=== PATIENT | male | born 1985 | race Caucasian/White ===

== ENCOUNTER 2020-10-07 20:01 | Emergency (ER) | payer OTHER, SELFPAY ==
[2020-10-07 20:15] VITALS: BP 109/84; PULSE 88; RESP 18; TEMP 36.8; O2SAT 98; BMI 28.3
--- NOTE | 2020-10-07 20:32 | PC.NURSE ---
PT TO ROOM #18 WITH C/O DIARRHEA WHICH STARTED TODAY. PT CHG INTO GOWN AND IS COMPLAINING THAT HE HAS NO TV. PT ARRIVER ALERT, RESPIRATIONS EASY, N/L. SKIN W/D. PT AWAITING MD'S EVAL.
--- NOTE | 2020-10-07 21:02 | ED_ITS ---
HPI - Abdominal Pain General Chief Complaint: Abdominal Pain Stated Complaint: Diarrhea Source: patient Mode of arrival: ambulatory Limitations: no limitations History of Present Illness HPI narrative: 32-year-old male with lactose intolerance presents with abdominal cramping and diarrhea after accidentally drinking whole milk. He states his symptoms are much better and the diarrhea has stopped. He denies chest pain or pressure, palpitations, shortness of breath, abdominal distention, dysuria, hematuria, fevers and chills. MD elicited complaint: abdominal pain Pertinent past history: other ( Lactose intolerance) Onset (ago): hour(s) ( several hours) Pain Consistency: now resolved Location: LUQ, RUQ, RLQ and LLQ Severity: moderate Quality: cramping and aching Migration to: no migration Relieving factors: nothing Associated symptoms: denies other symptoms Related Data Previous Rx's Medication Instructions Recorded lactase [Dairy Relief] 3,000 unit PO QID PRN #60 tab 10/07/20 Allergies Allergy/AdvReac Type Severity Reaction Status Date / Time No Known Allergies Allergy Verified 10/07/20 20:15 [No Known Allergies*] Review of Systems Review of Systems Constitutional: No Weight loss, No Fever, No Chills, No Night Sweats, No Fatigue, No Malaise ENT/Mouth: No Hearing loss, No Ear Pain, No Nasal Congestion, No Sinus Pain, No Hoarseness, No sore throat, No Rhinorrhea, No Swallowing Difficulty Eyes: No Eye Pain, No Swelling, No Redness, No Foreign Body, No Discharge, No Vision Changes Cardiovascular: No Chest Pain, No SOB, No Dyspnea on Exertion, No Orthopnea, No Edema, No Palpitations Respiratory: No Cough, No Sputum, No Wheezing, No Smoke Exposure, No Dyspnea Gastrointestinal: no Nausea, noVomiting, positive Diarrhea, positive abdominal Pain, No Hematochezia, No Melena Genitourinary: no irregular bleeding, No Dysuria, No Urinary Frequency, No Hematuria, No Urinary Incontinence, No Urgency, No Flank Pain, No Urinary Flow Changes, No Hesitancy Musculoskeletal: No joint pain, No Myalgias, No Joint Swelling Skin: No Skin Lesions, No rash Neuro: No Weakness, No Numbness, No Paresthesias, No Loss of Consciousness, No Dizziness, No Headache Psych: No Anxiety/Panic, No Depression, No SI/HI/AH/VH, No Social Issues Heme/Lymph: No Bruising, No Bleeding,No Lymphadenopathy Endocrine: No Polyuria, No Polydipsia, No Temperature Intolerance Yes all other systems are reviewed and are negative Physical Exam Vital Signs: Vital Signs: Last Vital Signs Temp 98.3 F 10/07/20 20:15 Pulse 88 10/07/20 20:15 Resp 18 10/07/20 20:15 BP 109/84 10/07/20 20:15 Pulse Ox 98 10/07/20 20:15 Body Mass Index 28.3 Appearance: Alert. Oriented X3. No acute distress. Eyes: Pupils equal, round and reactive to light. ENT: Pharynx normal. Neck: Normal inspection. Neck supple. CVS: Normal heart rate and rhythm. Pulses normal. Respiratory: No respiratory distress. Breath sounds normal. Abdomen: Soft and nontender. Skin: Skin warm and dry. Normal skin color. Normal skin turgor. Extremities: No lower extremity edema. Neuro: No motor deficit. No sensory deficit. Course Course Course Narrative: 34-year-old male with lactose intolerance presents with abdo eileen cramping and diarrhea that has now resolved after drinking whole milk. Plan of care to discharge home as he is afebrile, vital signs are Stable and within normal limits, patient no longer has pain And diarrhea has resolved. We will prescribe him some Lactaid and discharged home. patient verbalized understanding of and agrees plan of care to discharge home. MDM - Abdominal Pain Differential Diagnosis Differential diagnosis: Likely abdominal pain, gastroenteritis and gastritis Differential diagnosis narrative:: Lactose intolerance Medical Records Attestation: I reviewed the patient's medical records. Discharge Plan Discharge Clinical Impression: Dietary lactose intolerance, Abdominal cramping Patient Disposition: Home, Self-Care Instructions: Lactose-Controlled Diet (ED) Additional Instructions: you were evaluated for abdominal pain and cramping with some diarrhea. This is suspected to be lactose intolerance. Please use Lactaid as needed. Your symptoms are not consistent with COVID-19. You may return to work tomorrow. Thank you for choosing this emergency department for evaluation. Please follow-up with primary care physician as needed. Return to the emergency department for any new, concerning, or worsening symptoms. Prescriptions: New lactase [Dairy Relief] 3,000 unit tablet 3,000 unit PO QID PRN (Reason: lactose intolerance) Qty: 60 RF: 0 Stand Alone Forms: Work/School Release Interventions: ED Discharge Assessment Last Done: 10/07/20 21:13 Discharge Date/Time: 10/07/20 21:21 [facility] Past Medical History Attestation statement: The following information was validated with the patient. Medical History Healthy adult Polysubstance dependence Social History Social History Use of substances other than those prescribed or required for medical reasons: No Any prior treatment program specific to substance use: No Advance Directives: No Advance Directives Information Provided: No
--- NOTE | 2020-10-07 21:16 | PC.NURSE ---
PT REQUESTING HE WANT TO LEAVE PT STATES HE FEEL BETTER AND JUST WANTS A NOTE FOR WORK. [employer] AWARE.
== END 2020-10-07 21:21 | disposition home or self-care (01) ==
PROVIDERS: Emergency Provider Emergency Medicine
DX: E73.8 Other lactose intolerance (principal); R10.9 Unspecified abdominal pain
CPT/HCPCS: 99283; 99284

== ENCOUNTER 2021-03-06 12:04 | Emergency (ER) | payer OTHER, SELFPAY ==
--- NOTE | ~2021-03-06 | US_ITS ---
EXAMINATION: US VENOUS WITH DOPPLER UPPER EXTREMITY, RIGHT CLINICAL INFORMATION: Pain, swelling and redness. Rule out DVT. COMPARISON: None TECHNIQUE: Ultrasound of the upper extremity is performed using compression sonography and color and pulse Doppler flow with assessment of augmentation of flow. There is also imaging and Doppler assessment of the jugular and subclavian veins. Spectral analysis with color-flow imaging is performed. FINDINGS: Respiratory variation, normal compression, and augmented flow are noted throughout the upper extremity including the axillary, brachial, cubital, and radial and ulnar veins. The cephalic vein is not visualized. There is normal flow in the internal jugular and subclavian veins. There is no visible deep or superficial thrombophlebitis. There is a complex hypervascular echogenic fluid seen in the right antecubital fossa measuring 2.9 x 1.8 x 2.7 cm. There is strongly suspicious for an abscess. If the patient's symptoms progress, a followup ultrasound in 5 -7 days might be of value to exclude proximal propagation from a nonvisualized distal arm vein. US/US venous duplex UE RT IMPRESSION: No DVT demonstrated in the right upper extremity. Suspect abscess in the right antecubital fossa.
--- NOTE | ~2021-03-06 | XR_ITS ---
EXAMINATION: XR ELBOW, RIGHT CLINICAL INFORMATION: Pain, swelling. Redness. History IV. COMPARISON: Right upper extremity venous ultrasound with Doppler 03/06/2021 TECHNIQUE: AP, lateral, and oblique views of the right elbow. FINDINGS: Bony mineralization is normal. There is no fracture, dislocation, destructive process, or periostitis. No elbow capsular effusion. There is subcutaneous edema suggested in the anterior medial soft tissues. Abscess suspected on recent upper extremity ultrasound. XR/XR elbow RT min 3V IMPRESSION: 1. No bony destructive process or capsular effusion. 2. See upper extremity ultrasound report regarding suspected abscess.
[2021-03-06 12:07] VITALS: BP 121/74; PULSE 93; RESP 18; TEMP 37.8; O2SAT 99; BMI 23.5
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
[2021-03-06] MEDS: cephALEXin 500 MG CAPSULE PO (13:24)
[2021-03-06 13:54] LABS: MANUAL DIFF FLAG NO
[2021-03-06 13:56] LABS: Basophils Percent Auto 0.1 % (0-2); Eosinophils Absolute Auto 0.1 X10*3/uL (0.0-0.4); Eosinophils Percent Auto 0.6 % (0-4); Hematocrit 41.5 % (42-52); Hemoglobin 13.8 g/dl (14.0-18.0); Imm Gran Abs Auto 0.06 X10*3/uL (0.00-0.03); Imm Gran Pct Auto 0.4 % (0.0-0.4); Lymphocytes Absolute Auto 1.6 X10*3/uL (1.2-4.9); Lymphocytes Percent Auto 11.9 % (20-40); Mean Corpuscular HGB Conc 33.3 g/dl (31.0-36.0); Mean Corpuscular Hemoglobin 30.8 pg (27.0-33.0); Mean Corpuscular Volume 92.6 fL (80-98); Monocytes Absolute Auto 0.8 X10*3/uL (0.1-1.2); Monocytes Percent Auto 6.1 % (2-11); Neutrophils Absolute Auto 10.8 X10*3/uL (2.0-8.3); Neutrophils Percent Auto 80.9 % (45-73); Platelet Count 347 X10*3/uL (160-400); Red Blood Count 4.48 X10*6/uL (4.60-5.80); Red Cell Distribution Width 12.4 % (11.0-16.0); White Blood Count 13.4 X10*3/uL (4.8-10.8)
[2021-03-06 14:22] LABS: Lactic Acid 1.6 mmol/L (0.5-2.0)
[2021-03-06 14:26] LABS: Anion Gap 11 (12-20); Blood Urea Nitrogen 9 mg/dL (9-16); Calcium 9.2 mg/dL (8.4-10.2); Carbon Dioxide 29 mmol/L (22-29); Chloride 103 mmol/L (96-108); Creatinine Clr Calc Pharmacy 129.2; Estimated Glomerular Filt Rate > 60; Glucose Random 88 mg/dL (60-115); Potassium 4.9 mmol/L (3.3-5.1); Sodium 138 mmol/L (135-145)
[2021-03-06 14:32] VITALS: BP 110/63; PULSE 80; RESP 14; TEMP 37.2; O2SAT 97
== END 2021-03-06 14:52 | disposition home or self-care (01) ==
PROVIDERS: Physician Assistant; Emergency Provider Emergency Medicine
DX: L02.413 Cutaneous abscess of right upper limb (principal); L03.113 Cellulitis of right upper limb; M79.601 Pain in right arm
CPT/HCPCS: 10060; 36415; 73080; 80048; 83605; 85025; 87040; 87071; 87205; 93971; 99283; 99284

== ENCOUNTER 2021-03-09 13:25 | Emergency (ER) | payer OTHER, SELFPAY ==
[2021-03-09 13:40] VITALS: BP 131/58; PULSE 84; RESP 18; TEMP 36.6; O2SAT 98; BMI 23.5
--- NOTE | 2021-03-09 13:51 | ED_ITS ---
HPI - Skin/Abscess/Foreign Bdy General Chief complaint: Skin/Abscess/Foreign Body Stated complaint: wound check Time Seen by Provider: 03/09/21 13:46 Source: patient Mode of arrival: ambulatory Limitations: no limitations History of Present Illness HPI narrative: 35 y/o male presenting with right middle arm abscess. He was recently seen here on 03/06 for cellulitis and abscess to right AC area. At that time he had negative US doppler, WBC 13K, abscess was aspirated for 6.5 cc fluid. He was discharged on Bactrim and Keflex. He states the area started to swell up again yesterday. He thinks the abscess filled back up. He is compliant with the antibiotics and denies fevers at home. The redness of his arm is significantly improved. MD complaint: abscess/boil Onset (ago): day(s) (4) Tetanus up to date: yes Location: RUE Severity: moderate Quality: aching and constant Pain Consistency: constant Relieving factors: immobilization Exacerbating factors: palpation and movement Associated symptoms: denies other symptoms Treatments prior to arrival: attempted to drain pus at home Related Data Previous Rx's Medication Instructions Recorded lactase [Dairy Relief] 3,000 unit PO QID PRN #60 tab 10/07/20 cephalexin 500 mg PO Q8H 10 Days #30 cap 03/06/21 ibuprofen 800 mg PO Q8H PRN #20 tab 03/06/21 sulfamethoxazole-trimethoprim 1 tab PO BID #14 tab 03/06/21 [Bactrim DS] Allergies Allergy/AdvReac Type Severity Reaction Status Date / Time No Known Allergies Allergy Verified 03/06/21 12:06 [No Known Allergies*] Review of Systems Review of Systems: Constitutional: No Fever, No Chills Cardiovascular: No Chest Pain, No SOB Respiratory: No Cough, No Sputum Gastrointestinal: No Nausea, No Vomiting, No Diarrhea, No abdominal Pain Musculoskeletal: No joint pain, No Myalgias Skin: + Skin Lesions, No rash Neuro: No Weakness, No Numbness Heme/Lymph: No Bruising, No Lymphadenopathy PMFSH Past Medical History Attestation statement: The following information was validated with the patient. Medical History Healthy adult Polysubstance dependence Social History Social History Advance Directives: No Advance Directives Information Provided: Yes Physical Exam Vital Signs: Vital Signs: Last Vital Signs Temp 97.9 F 03/09/21 13:40 Pulse 84 03/09/21 13:40 Resp 18 03/09/21 13:40 BP 131/58 L 03/09/21 13:40 Pulse Ox 98 03/09/21 13:40 Body Mass Index 23.5 Appearance: Alert. Oriented X3. No acute distress. HEENT: normal inspection CVS: Normal heart rate and rhythm. Pulses normal. Respiratory: No respiratory distress. Skin: Skin warm and dry. Normal skin color. Normal skin turgor. No rashes. Extremities: right AC with 3 cm erythematous and tender lesion with central fluctuance, small needle hole centrally with pus draining. minimal surrounding erythema. he has normal ROM of right elbow. Neuro: Oriented X 3. No motor deficit. No sensory deficit. Course Course Course Narrative: 35 y/o male presenting with right AC abscess 3 days after needle aspiration of abscess. Amenable to drainage with fluctuance. See I&D no te. Wound care discussed. Patient is stable for d/c. Procedures Abscess I/D Site: upper extremity Side (if applicable): right Local Anesthetic: lidocaine 2% Amount of anesthesia used (mL): 2 Technique: incised with blade Sent for culture/gram staining?: No Irrigation: Yes Packing used?: iodoform Discharge Plan Discharge Clinical Impression: Abscess Patient Disposition: Home, Self-Care Instructions: Abscess Incision and Drainage (DC) Additional Instructions: Your abscess was drained today in the ER. Take the packing out in 2 days. Your wound will heal from the inside out. You may have more drainage at home. Use warm compresses several times per day to the area to help fight the infection. Continue taking the antibiotics. If the abscess gets large again or if you have increased redness, warmth or are unable to bend your elbow come back to the ER for further evaluation. Prescriptions: No Action lactase [Dairy Relief] 3,000 unit tablet 3,000 unit PO QID PRN (Reason: lactose intolerance) Qty: 60 RF: 0 sulfamethoxazole-trimethoprim [Bactrim DS] 800-160 mg tablet 1 tab PO BID Qty: 14 RF: 0 cephalexin 500 mg capsule 500 mg PO Q8H 10 Days Qty: 30 RF: 0 ibuprofen 800 mg tablet 800 mg PO Q8H PRN (Reason: pain) Qty: 20 RF: 0
[2021-03-09] MEDS: Lidocaine HCl 2 % MPF 5 ML VIAL INFILTRATI (13:57)
== END 2021-03-09 14:20 | disposition home or self-care (01) ==
PROVIDERS: Emergency Provider Emergency Medicine
DX: L02.413 Cutaneous abscess of right upper limb (principal); F19.20 Other psychoactive substance dependence, uncomplicated
CPT/HCPCS: 10060; 99283; 99284

== ENCOUNTER 2022-02-14 02:23 | Emergency (ER) | payer MEDICAID, SELFPAY ==
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
--- NOTE | ~2022-02-14 | XR_ITS ---
EXAMINATION: XR CHEST CLINICAL INFORMATION: Pneumothorax status post chest tube placement COMPARISON: CT chest performed earlier same day TECHNIQUE: Frontal view of the chest was obtained. XR/XR chest 1V FINDINGS/IMPRESSION: Pigtail catheter has been placed in the left pleural space. Small residual left pneumothorax. Right lung clear. Normal heart size and pulmonary vascularity. No fractures.
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
[2022-02-14 02:29] VITALS: BP 130/78; PULSE 100; O2SAT 97
[2022-02-14 03:03] VITALS: BMI 24.1
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
--- NOTE | 2022-02-14 03:28 | PC.NURSE ---
pt walking around with his c-collar intact, pt redirected back to bed, told that he shouldn't be walking with the collar on, that it is less effective if he does have a neck injury. pt given a urinal to void
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
[2022-02-14 04:02] LABS: MANUAL DIFF FLAG NO
[2022-02-14 04:03] LABS: Basophils Percent Auto 0.1 % (0-2); Eosinophils Absolute Auto 0.1 X10*3/uL (0.0-0.4); Eosinophils Percent Auto 0.7 % (0-4); Hematocrit 41.1 % (42.0-52.0); Hemoglobin 14.2 g/dl (14.0-18.0); Imm Gran Abs Auto 0.05 X10*3/uL (0.00-0.03); Imm Gran Pct Auto 0.3 % (0.0-0.4); Lymphocytes Absolute Auto 1.2 X10*3/uL (1.2-4.9); Mean Corpuscular HGB Conc 34.5 g/dl (31.0-36.0); Mean Corpuscular Hemoglobin 30.5 pg (27.0-33.0); Mean Corpuscular Volume 88.2 fL (80.0-98.0); Mean Platelet Volume 8.6 fL (9.4-12.4); Monocytes Absolute Auto 0.9 X10*3/uL (0.1-1.2); Monocytes Percent Auto 6.1 % (2-11); Neutrophils Absolute Auto 12.6 x10*3/uL (2.0-8.3); Neutrophils Percent Auto 84.8 % (45-73); Platelet Count 353 X10*3/uL (160-400); Red Blood Count 4.66 X10*6/uL (4.60-5.80); Red Cell Distribution Width 12.3 % (11.0-16.0); White Blood Count 14.9 X10*3/uL (4.8-10.8)
[2022-02-14 04:23] LABS: Alanine Aminotransferase 19 U/L (0-40); Albumin Level 4.6 g/dL (3.5-5.0); Alkaline Phosphatase 60 U/L (39-117); Anion Gap 15 (12-20); Aspartate Amino Transferase 30 U/L (5-37); Bilirubin Total 0.8 mg/dL (0.0-1.0); Blood Urea Nitrogen 12 mg/dL (9-16); Calcium 9.5 mg/dL (8.4-10.2); Carbon Dioxide 27 mmol/L (22-29); Chloride 104 mmol/L (96-108); Creatinine Clr Calc Pharmacy 98.4; Estimated Glomerular Filt Rate > 60; Glucose Random 97 mg/dL (60-115); Potassium 3.8 mmol/L (3.3-5.1); Sodium 142 mmol/L (135-145); Total Protein 7.4 g/dL (6.5-8.0)
--- NOTE | 2022-02-14 04:44 | PC.NURSE ---
pt resting in bed, attached to director of cardiac rehabilitation
[2022-02-14 04:45] VITALS: BP 124/77; PULSE 89; RESP 18; O2SAT 98
[2022-02-14] MEDS: Ketorolac Tromethamine 30 MG/ML VIAL 15 MG IVPUSH (05:04)
[2022-02-14] MEDS: Acetaminophen 325 MG TABLET 975 MG PO (05:09)
[2022-02-14 06:22] VITALS: BP 115/80; PULSE 67; RESP 16; O2SAT 98
--- NOTE | 2022-02-14 07:37 | PC.NURSE ---
@[phone] DR COWART ASKS FOR CALL OUT TO [facility] PT TX LINE FOR THIS PT JUDIE ANSWERS, TAKES PT INFO AND ASKS TO SPEAK WITH DR SOFYA COWART TAKES OVER CALL RIGHT AWAY
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
[2022-02-14 08:09] LABS: COVID-19 Test Negative (Negative); IDNOW Serial# 16C4AD1C
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
--- NOTE | 2022-02-14 10:35 | PC.NURSE ---
[facility] PT TX LINE CALLED @ THIS TIME TO FIND OUT IF WE HAVE ROOM ASSIGNMENT YET JUDIE ANSWERS AND CONFIRMS WE ARE STILL WAITING FOR ROOM ASSIGNMENT
[2022-02-14] MEDS: Ketorolac Tromethamine 30 MG/ML VIAL IVPUSH (10:40)
[2022-02-14 10:49] VITALS: BP 107/77; PULSE 63; RESP 13; O2SAT 97
--- NOTE | 2022-02-14 11:25 | PC.NURSE ---
Pt remains restless, VSS. LS clear and equal throughout all lung pierce. Needs frequent redirection and education. Minimal blood noted in tubing
--- NOTE | 2022-02-14 11:29 | PC.NURSE ---
CALL FROM YEIMI OF [facility] BED MANAGEMENT WITH ROOM ASSIGNMENT FOR THIS PT @ THIS TIME [facility] [address], ROOM 3 RN TO RN SHOULD BE CALLED TO [phone]
--- NOTE | 2022-02-14 11:43 | PC.NURSE ---
Nurse to nurse transfer report given to MARIBEL Mobley at [facility] on Wing [address].
[2022-02-14 13:50] VITALS: BP 110/73; PULSE 63; RESP 16; TEMP 36.7
[2022-02-14] MEDS: Buprenorphine/Naloxone 8/2 mg FILM 1 FILM SUBLINGUAL (13:50)
[2022-02-14 13:52] VITALS: BP 116/73; PULSE 63; RESP 16; O2SAT 97
--- NOTE | 2022-02-14 15:20 | PC.NURSE ---
Pt asleep, breathing easy. Awaits tx to BS
== END 2022-02-14 15:39 | disposition short-term general hospital (02) ==
PROVIDERS: Emergency Provider Student in an Organized Health Care Education/Training Program
DX: S27.321A Contusion of lung, unilateral, initial encounter (principal); S27.0XXA Traumatic pneumothorax, initial encounter; V13.4XXA Pedal cycle driver injured in collision with car, pick-up truck or van in traffic accident, initial encounter; Y93.89 Activity, other specified; Y92.414 Local residential or business street as the place of occurrence of the external cause; Y99.9 Unspecified external cause status
CPT/HCPCS: 32556; 36415; 70450; 71045; 71260; 72125; 74177; 80053; 85025; 87635; 90471; 96374; 96376; 99285; J1885

== ENCOUNTER 2022-03-04 16:47 | Emergency (ER) | payer MEDICAID, SELFPAY ==
--- NOTE | ~2022-03-04 | XR_ITS ---
EXAMINATION: CHEST 2 VIEWS CLINICAL INFORMATION: CHEST PAIN, RECENT PNEUMOTHORAX . COMPARISON: 02/14/2022. TECHNIQUE: PA and lateral views of the chest obtained. FINDINGS: Left chest tube is been removed in interval from the prior study. There is minimal linear scarring or atelectasis in the lateral aspect of the left base. I do not appreciate any significant residual pneumothorax. No dense Foundation or edema. Cardiac and mediastinal silhouettes within normal limits for size. XR/XR chest 2V IMPRESSION: Left chest tube removed. Linear scarring or atelectasis in the left base but no significant residual pneumothorax
[2022-03-04 18:24] VITALS: BP 148/86; PULSE 93; RESP 16; TEMP 36.6; O2SAT 99; BMI 21.9
== END 2022-03-04 20:36 | disposition left against medical advice (07) ==
PROVIDERS: Emergency Provider Emergency Medicine
DX: R06.02 Shortness of breath (principal); J93.9 Pneumothorax, unspecified
CPT/HCPCS: 71046; 99281; 99283

== ENCOUNTER 2022-11-17 15:07 | Emergency (ER) | payer MEDICAID, SELFPAY ==
--- NOTE | ~2022-11-17 | CT_ITS ---
EXAMINATION: CT ABDOMEN AND PELVIS WITHOUT CONTRAST CLINICAL INFORMATION: abdominal pain. blood in stool. colitis? COMPARISON: 02/14/2022 TECHNIQUE: Multidetector volumetric imaging was performed from the lung bases through the pubic symphysis. Sagittal and coronal reformatted images were obtained on the technologist workstation. This CT examination was performed using dose optimization techniques as appropriate, variously including the following: *Automated exposure control *Adjustment of mA and/or kV according to patient size (this includes techniques or standardized protocols for targeted exams where dose is matched to indication/reason for exam; i.e. extremities or head) *Use of iterative reconstruction technique FINDINGS: The lack of intravenous contrast limits evaluation of the solid visceral organs including the liver, spleen, pancreas, and kidneys. LUNG BASES: The visualized lung bases are unremarkable. LIVER, GALLBLADDER, AND BILIARY TREE: Limited non-contrast evaluation is normal. No gross focal hepatic lesion. Normal liver size and contour. No gross biliary ductal dilation. The gallbladder is unremarkable with no evidence of radiopaque gallstones, gallbladder wall thickening, or obvious pericholecystic inflammatory changes. PANCREAS: Limited non-contrast evaluation is normal. No horace-pancreatic fluid. SPLEEN: Limited non-contrast evaluation is normal. ADRENAL GLANDS: Normal; no adrenal mass. KIDNEYS AND URETERS: Limited non-contrast evaluation is normal. No hydronephrosis, hydroureter, or calculi seen. No perinephric stranding. GASTROINTESTINAL TRACT: The stomach and small bowel are nondilated. The appendix is normal. Scattered colonic diverticulosis. There is wall thickening and edema of the left colon consistent with colitis. Subtle pericolonic fat stranding. ABDOMINAL WALL: Fat within the inguinal canals bilaterally. LYMPH NODES: No pathologically enlarged lymph nodes in the abdomen or pelvis. VASCULAR: Normal caliber abdominal aorta. BLADDER: Unremarkable. PELVIC VISCERA: Normal noncontrast appearance of the prostate and seminal vesicles. OSSEOUS STRUCTURES: No acute or suspicious osseous abnormalities. CT/CT abdomen pelvis wo IV con IMPRESSION: Abnormal appearance of the left colon consistent with a nonspecific colitis, possibly infectious or inflammatory, unlikely ischemic.
[2022-11-17 15:21] VITALS: BP 126/63; PULSE 69; RESP 18; TEMP 36.7; O2SAT 98; BMI 23.3
--- NOTE | 2022-11-17 15:25 | ED_ITS ---
HPI - General Adult General Chief complaint: Abdominal Pain <ABDIAS Marrero Last Filed: 11/17/22 20:05> Stated complaint: blood in stool/ constipated <ABDIAS Marrero Last Filed: 11/17/22 20:05> Time Seen by Provider: 11/17/22 16:49 <ABDIAS Marrero Last Filed: 11/17/22 20:05> History of Present Illness HPI narrative: Patient complains of several episodes of diarrhea earlier this morning as well as some blood in the stool with the last 2 episodes of diarrhea which happened this morning, there is been no diarrhea since this morning no abdominal pain no nausea vomiting no black tarry stool The diarrhea was brown watery stool with flecks of blood in the toilet, he has no dizziness no fainting no feeling faint no confusion, no recent fever or illness Last night he did push hard to pass hard stool and thinks that may have caused the small amount of bleeding the following morning <ABDIAS Lew Last Filed: 11/17/22 19:13> Related Data Home medications: Home Medications Medication Instructions Recorded Confirmed buprenorphine 8 mg-naloxone 2 mg 1 strip sublingual BID 02/14/22 02/14/22 sublingual film (Suboxone) <ABDIAS Marrero Last Filed: 11/17/22 20:05> Allergies/adverse reactions: Allergies Allergy/AdvReac Type Severity Reaction Status Date / Time No Known Allergies Allergy Verified 11/17/22 15:21 [No Known Allergies*] <ABDIAS Marrero Last Filed: 11/17/22 20:05> Review of Systems Review of Systems: He denies fever chills no dizziness no weakness no fainting no feeling faint no bleeding from any other sites no skin rash no abdominal pain no nausea or vomiting no dysuria no black tarry stool no skin rashes no bruising <ABDIAS Lew Last Filed: 11/17/22 19:13> Yes all other systems are reviewed and are negative <ABDIAS Lew Last Filed: 11/17/22 19:13> PMFSH Past Medical History PMFSH Narrative: He has no history of frequent diarrhea, no history of blood in the stool <ABDIAS Lew Last Filed: 11/17/22 19:13> Source: nursing notes reviewed <ABDIAS Lew - Last Filed: 11/17/22 19:13> Medical History: Medical History Healthy adult Polysubstance dependence <ABDIAS Marrero - Last Filed: 11/17/22 20:05> Social History Social History: Social History Advance Directives: No Advance Directives Information Provided: Yes <ABDIAS Marrero - Last Filed: 11/17/22 20:05> Physical Exam ED Vital Signs: Vital Signs - 24 hr 11/17/22 15:21 Temperature 98.1 F Pulse Rate 69 Respiratory Rate 18 Blood Pressure 126/63 Pulse Oximetry 98 Oxygen Delivery Method Room Air BMI result Body Mass Index 23.3 <ABDIAS Marrero Last Filed: 11/17/22 20:05> Vital Signs - 24 hr 11/17/22 15:21 Temperature 98.1 F Pulse Rate 69 Respiratory Rate 18 Blood Pressure 126/63 Pulse Oximetry 98 Oxygen Delivery Method Room Air BMI result Body Mass Index 23.3 <ABDIAS Lew - Last Filed: 11/17/22 19:13> Patient is in no acute distress, comfortable cooperative Eyes anicteric with no pallor Pharynx mucous membranes are moist Neck is supple Respiratory no distress Abdomen is soft and nontender no rebound no guarding Rectal exam no masses felt, no obvious hemorrhoids, stool on glove was brownish in color, it was faintly guaiac-positive Extremities full range of motion x4 Skin no rashes no petechiae no purpura <ABDIAS Lew - Last Filed: 11/17/22 19:13> Course Course Course Narrative: RME: Patient presents to the ED for one episode of blood in stool this morning and is having lower abdominal pain. labs and Dry CT scan of abdomen ordered to check for colitis <ABDIAS Marrero Last Filed: 11/17/22 20:05> RME: Patient presents to the ED for one episode of blood in stool this morning and is having lower abdominal pain. labs and Dry CT scan of abdomen ordered to check for colitis Chemistries including LFTs were normal CBC showed normal hemoglobin and hematocrit with normal platelets of 329, INR was normal CT results showed an abnormal appearance of the left colon consistent with a nonspecific colitis possibly infectious or inflammatory Patient had 2 episodes of diarrhea this morning has had none since His complaint of a small amount of blood mixed with brownish watery stool after 2 episodes of diarrhea does not merit antibiotics at this time Case was discussed with attending physician Eulalio or agrees that patient will be discharged and if he remains asymptomatic with no more episodes of bleeding no further treatment is needed now He is advised to return to the ER if he develops any worsening diarrhea, if he has worsening rectal bleeding There was no mass palpated on rectal exam, and with normal hemoglobin hematocrit he is not anemic and likely has a nonbacterial diarrhea which irritated the rectum and caused a small amount of bleeding in toilet mixed with brown stool <ABDIAS Lew - Last Filed: 11/17/22 19:13> Medical Decision Making Lab Data MDM Lab Attestation statement: I reviewed the patient's lab results. <ABDIAS Lew - Last Filed: 11/17/22 19:13> Result Diagrams: 11/17/22 15:44 11/17/22 15:44 <ABDIAS Marrero - Last Filed: 11/17/22 20:05> Labs: Lab Results 11/17/22 11/17/22 11/17/22 Range/Units 15:44 15:44 15:44 WBC 10.4 (4.8-10.8) X10*3/uL RBC 5.34 (4.60-5.80) X10*6/uL Hgb 15.9 (14.0-18.0) g/dl Hct 46.8 (42.0-52.0) % MCV 87.6 (80.0-98.0) fL MCH 29.8 (27.0-33.0) pg MCHC 34.0 (31.0-36.0) g/dl RDW 12.7 (11.0-16.0) % Plt Count 329 (160-400) X10*3/uL MPV 8.6 L (9.4-12.4) fL Immature Gran % (Auto) 0.2 (0.0-0.4) % Neut % (Auto) 71.5 (45-73) % Lymph % (Auto) 19.7 L (20-40) % [place] % (Auto) 4.8 (2-11) % Eos % (Auto) 3.5 (0-4) % Baso % (Auto) 0.3 (0-2) % Lymph # (Auto) 2.0 (1.2-4.9) X10*3/uL [place] # (Auto) 0.5 (0.1-1.2) X10*3/uL Eos # (Auto) 0.4 (0.0-0.4) X10*3/uL Baso # (Auto) 0.0 (0.0-0.2) X10*3/uL Abs Immat Gran (auto) 0.02 (0.00-0.03) X10*3/uL Absolute Neuts (auto) 7.4 (2.0-8.3) x10*3/uL Absolute Nucleated RBC 0.000 (0.0-0.012) X10*3/uL Nucleated RBC % (auto) 0.0 (0.0-0.2) /100WBC PT 12.0 (10.0-13.1) SEC INR 1.0 (0.9-1.1) APTT 31.7 (26.0-36.4) SEC Sodium 141 (135-145) mmol/L Potassium 4.2 (3.3-5.1) mmol/L Chloride 105 (96-108) mmol/L Carbon Dioxide 24 (22-29) mmol/L Anion Gap 16 (12-20) BUN 15 (9-16) mg/dL Creatinine 0.93 (0.5-1.4) mg/dL Estim Creat Clear Calc 96.4 Estimated GFR > 60 Random Glucose 95 (60-115) mg/dL Calcium 9.7 (8.4-10.2) mg/dL Total Bilirubin 0.6 (0.0-1.0) mg/dL AST 19 (5-37) U/L ALT 17 (0-40) U/L Alkaline Phosphatase 77 (39-117) U/L Total Protein 7.6 (6.5-8.0) g/dL Albumin 4.8 (3.5-5.0) g/dL <ABDIAS Marrero - Last Filed: 11/17/22 20:05> Lab Results 11/17/22 11/17/22 11/17/22 Range/Units 15:44 15:44 15:44 WBC 10.4 (4.8-10.8) X10*3/uL RBC 5.34 (4.60-5.80) X10*6/uL Hgb 15.9 (14.0-18.0) g/dl Hct 46.8 (42.0-52.0) % MCV 87.6 (80.0-98.0) fL MCH 29.8 (27.0-33.0) pg MCHC 34.0 (31.0-36.0) g/dl RDW 12.7 (11.0-16.0) % Plt Count 329 (160-400) X10*3/uL MPV 8.6 L (9.4-12.4) fL Immature Gran % (Auto) 0.2 (0.0-0.4) % Neut % (Auto) 71.5 (45-73) % Lymph % (Auto) 19.7 L (20-40) % [place] % (Auto) 4.8 (2-11) % Eos % (Auto) 3.5 (0-4) % Baso % (Auto) 0.3 (0-2) % Lymph # (Auto) 2.0 (1.2-4.9) X10*3/uL [place] # (Auto) 0.5 (0.1-1.2) X10*3/uL Eos # (Auto) 0.4 (0.0-0.4) X10*3/uL Baso # (Auto) 0.0 (0.0-0.2) X10*3/uL Abs Immat Gran (auto) 0.02 (0.00-0.03) X10*3/uL Absolute Neuts (auto) 7.4 (2.0-8.3) x10*3/uL Absolute Nucleated RBC 0.000 (0.0-0.012) X10*3/uL Nucleated RBC % (auto) 0.0 (0.0-0.2) /100WBC PT 12.0 (10.0-13.1) SEC INR 1.0 (0.9-1.1) APTT 31.7 (26.0-36.4) SEC Sodium 141 (135-145) mmol/L Potassium 4.2 (3.3-5.1) mmol/L Chloride 105 (96-108) mmol/L Carbon Dioxide 24 (22-29) mmol/L Anion Gap 16 (12-20) BUN 15 (9-16) mg/dL Creatinine 0.93 (0.5-1.4) mg/dL Estim Creat Clear Calc 96.4 Estimated GFR > 60 Random Glucose 95 (60-115) mg/dL Calcium 9.7 (8.4-10.2) mg/dL Total Bilirubin 0.6 (0.0-1.0) mg/dL AST 19 (5-37) U/L ALT 17 (0-40) U/L Alkaline Phosphatase 77 (39-117) U/L Total Protein 7.6 (6.5-8.0) g/dL Albumin 4.8 (3.5-5.0) g/dL <ABDIAS Lew - Last Filed: 11/17/22 19:13> Discharge Plan Discharge Clinical Impression: Diarrhea, Painless rectal bleeding <ABDIAS Marrero - Last Filed: 11/17/22 20:05> Patient Disposition: Home, Self-Care <ABDIAS Marrero Last Filed: 11/17/22 20:05> Additional Instructions: The small amount of blood you saw this morning mixed with watery brown diarrhea is likely irritation to the area On rectal exam I did not feel any mass As there has been no diarrhea since this morning it may have resolved The plan is if all goes back to normal no treatment needed, if diarrhea continues you can try over the counter Imodium for diarrhea If it worsens worsens , or does not get better within 2-3 days, you will have to return to the ER for re-evaluation, if bleeding does not resolve, or if you develop black tarry stool or if you have frequent episodes of red blood or if you develop abdominal pain vomiting or fever or if you feel dehydrated return to the ER any time for re-evaluation Return any time for any worse condition or any concerns Follow routinely with primary doctor <ABDIAS Marrero - Last Filed: 11/17/22 20:05> Prescriptions: No Action buprenorphine-naloxone [Suboxone] 8-2 mg film 1 strip sublingual BID <ABDIAS Marrero - Last Filed: 11/17/22 20:05> Interventions: ED Discharge Assessment Last Done: 11/17/22 19:12 <ABDIAS Marrero - Last Filed: 11/17/22 20:05> Discharge Date/Time: 11/17/22 19:12 <ABDIAS Marrero - Last Filed: 11/17/22 20:05>
[2022-11-17 15:48] LABS: MANUAL DIFF FLAG NO
[2022-11-17 15:49] LABS: Basophils Percent Auto 0.3 % (0-2); Eosinophils Absolute Auto 0.4 X10*3/uL (0.0-0.4); Eosinophils Percent Auto 3.5 % (0-4); Hematocrit 46.8 % (42.0-52.0); Hemoglobin 15.9 g/dl (14.0-18.0); Imm Gran Abs Auto 0.02 X10*3/uL (0.00-0.03); Imm Gran Pct Auto 0.2 % (0.0-0.4); Lymphocytes Percent Auto 19.7 % (20-40); Mean Corpuscular Hemoglobin 29.8 pg (27.0-33.0); Mean Corpuscular Volume 87.6 fL (80.0-98.0); Mean Platelet Volume 8.6 fL (9.4-12.4); Monocytes Absolute Auto 0.5 X10*3/uL (0.1-1.2); Monocytes Percent Auto 4.8 % (2-11); Neutrophils Absolute Auto 7.4 x10*3/uL (2.0-8.3); Neutrophils Percent Auto 71.5 % (45-73); Platelet Count 329 X10*3/uL (160-400); Red Blood Count 5.34 X10*6/uL (4.60-5.80); Red Cell Distribution Width 12.7 % (11.0-16.0); White Blood Count 10.4 X10*3/uL (4.8-10.8)
[2022-11-17 15:57] LABS: Partial Thromboplastin Time 31.7 SEC (26.0-36.4)
[2022-11-17 16:17] LABS: Alanine Aminotransferase 17 U/L (0-40); Albumin Level 4.8 g/dL (3.5-5.0); Alkaline Phosphatase 77 U/L (39-117); Anion Gap 16 (12-20); Aspartate Amino Transferase 19 U/L (5-37); Bilirubin Total 0.6 mg/dL (0.0-1.0); Blood Urea Nitrogen 15 mg/dL (9-16); Calcium 9.7 mg/dL (8.4-10.2); Carbon Dioxide 24 mmol/L (22-29); Chloride 105 mmol/L (96-108); Creatinine Clr Calc Pharmacy 96.4; Estimated Glomerular Filt Rate > 60; Glucose Random 95 mg/dL (60-115); Potassium 4.2 mmol/L (3.3-5.1); Sodium 141 mmol/L (135-145); Total Protein 7.6 g/dL (6.5-8.0)
== END 2022-11-17 19:12 | disposition home or self-care (01) ==
PROVIDERS: Physician Assistant; Emergency Provider Internal Medicine
DX: K92.1 Melena (principal); R19.7 Diarrhea, unspecified; Z79.899 Other long term (current) drug therapy
CPT/HCPCS: 36415; 74176; 80053; 85025; 85610; 85730; 99282; 99283

== ENCOUNTER 2024-04-14 11:49 | Outpatient (REF) | payer MEDICAID, SELFPAY ==
[2024-04-14 13:49] LABS: Alanine Aminotransferase 26 U/L (0-40); Albumin Level 4.5 g/dL (3.5-5.0); Alkaline Phosphatase 60 U/L (39-117); Aspartate Amino Transferase 30 U/L (5-37); Bilirubin Direct < 0.2 mg/dL (0.0-0.5); Bilirubin Total 0.2 mg/dL (0.0-1.0)
[2024-04-14 14:14] LABS: Syphilis Screen Nonreactive (Nonreactive)
[2024-04-15 08:06] LABS: HBc Num1 0.11 S/CO (0.00-0.79); HIV AB/AG Nonreactive (Nonreactive); HIV Num 1 0.07 S/CO (0.00-0.99); Hepatitis B Core Antibody Nonreactive (Nonreactive); Hepatitis B Surface Antigen Negative (Negative); ~HepC Num1 0.15 S/CO (0.00-0.79); ~Hepatitis B Surface Antibody REACTIVE (Nonreactive); ~Hepatitis C Antibody Nonreactive (Nonreactive)
[2024-04-15 08:07] LABS: Hepatitis A Antibody IgG REACTIVE (Nonreactive); ~Hepatitis A Antibody IgG 4.67 S/CO (0.00-0.99)
[2024-04-17 10:13] LABS: TS Negative Control Passed; TS Panel A 0; TS Panel B 0; TS Positive Control Passed; TSpotTB Negative (Negative)
== END 2024-04-14 11:50 | disposition home or self-care (01) ==
LOC: HO.HHCL 11:49
PROVIDERS: Visit Provider Family Medicine
DX: F11.20 Opioid dependence, uncomplicated (principal)
CPT/HCPCS: 36415; 80076; 86481; 86704; 86706; 86708; 86780; 86803; 87340; 87389

== ENCOUNTER 2024-11-23 15:21 | Emergency (ER) | payer OTHER, MEDICAID, SELFPAY ==
--- NOTE | ~2024-11-23 | XR_ITS ---
EXAMINATION: XR CHEST CLINICAL INFORMATION: chest pain, fall on ice today. COMPARISON: 03/04/2022. TECHNIQUE: 2 views of the chest were obtained. FINDINGS: The cardiac, hilar, and mediastinal contours are normal. The lungs are clear bilaterally. There is no pneumothorax or pleural effusion. There is no focal osseous or soft tissue abnormality. XR/XR chest 2V IMPRESSION: Normal chest. Electronically signed by: Seth Lara MD 11/23/2024 04:48 PM [facility]
--- NOTE | ~2024-11-23 | XR_ITS ---
EXAMINATION: XR LUMBOSACRAL SPINE CLINICAL INFORMATION: pain s/p fall COMPARISON: None. Correlation made with CT abdomen and pelvis 11/17/2022. TECHNIQUE: Three views of the lumbosacral spine. FINDINGS: Normal bone mineralization. No fracture, subluxation, compression deformity, or suspicious bone lesion. Normal lordosis without significant scoliosis. Mild disc space narrowing L5-S1. Facets are normally aligned. Normal facet appearance. The sacrum and SI joints appear intact and normal. No soft tissue abnormalities. XR/XR lumbar spine 2-3V IMPRESSION: No acute findings of the lumbar spine. Electronically signed by: Seth Lara MD 11/23/2024 04:50 PM [facility]
--- NOTE | ~2024-11-23 | XR_ITS ---
EXAMINATION: XR THORACIC SPINE CLINICAL INFORMATION: pain s/p fall COMPARISON: None. Correlation made with CT of the chest 02/14/2022. TECHNIQUE: 3 views of the thoracic spine were obtained. FINDINGS: There is normal kyphosis without significant scoliosis. No subluxations. No fracture, compression deformity, or suspicious bone lesion. Disc spaces appear normal. Facets are normally aligned. Imaged soft tissues and lungs appear normal. XR/XR thoracic spine 3V IMPRESSION: No acute findings thoracic spine. Electronically signed by: Seth Lara MD 11/23/2024 04:52 PM [facility]
--- NOTE | 2024-11-23 15:59 | ED_ITS ---
HPI - Fall General Chief Complaint: Fall Stated Complaint: Fall - back pain, discomfort in chest Time Seen by Provider: 11/23/24 19:28 Source: patient Mode of arrival: ambulatory Limitations: no limitations History of Present Illness ED Provider: Yara Tobias PA-C HPI Narrative: 39 yo male with history of substance use disorder on Suboxone presents to the ER for evaluation of back pain after he fell x3 today at work while slipping on ice. no head strike or LOC. not on anticoagulation. he reports his middle back and lower back spine are in pain. worse with movement. no abdominal pain. no urinary symptoms. reports chest pain since the fall as well - central and nonradiating. active smoker. he thinks the pain is due to his coughing, described as a little bit. no coughing. complaint: fall Onset (ago): hour(s) Fall from: standing Fall witnessed: no Place fall occurred: work Loss of consciousness: none Prolonged down time: no Symptoms prior to fall: none Context: tripped/slipped Location of injury: back Severity: moderate Severity scale (1-10): 6 Quality: aching Associated symptoms (after fall): chest pain Related Data Home Medications ?Medication ?Instructions ?Recorded ?Confirmed buprenorphine 8 mg-naloxone 2 mg 1 strip sublingual BID 02/14/22 02/14/22 sublingual film (Suboxone) Previous Rx's ?Medication ?Instructions ?Recorded cyclobenzaprine 10 mg tablet 10 mg PO TID PRN muscle spasm #10 11/23/24 tabs lidocaine 5 % topical patch 1 patch topical DAILY #15 ea 11/23/24 naproxen 500 mg tablet 500 mg PO BID PRN pain #20 tabs 11/23/24 Allergies Allergy/AdvReac Type Severity Reaction Status Date / Time No Known Allergies Allergy Verified 11/23/24 16:02 [No Known Allergies*] Review of Systems Review of Systems: Yes all other systems are reviewed and are negative PMFSH Past Medical History Medical History Healthy adult Polysubstance dependence Social History Social History Advance Directives: No Advance Directives Information Provided: No Physical Exam Vital Signs: Vital Signs: Last Vital Signs Temp 97.3 F 11/23/24 19:42 Pulse 86 11/23/24 19:42 Resp 16 11/23/24 19:42 BP 114/71 11/23/24 19:42 Pulse Ox 97 11/23/24 19:42 O2 Del Method Room Air 11/23/24 19:42 BMI result Body Mass Index 23.2 Appearance: Alert. Oriented X3. No acute distress. HEENT: normal external inspection Neck: Normal inspection. no c-spine tenderness CVS: Normal heart rate and rhythm. Pulses normal. Respiratory: No respiratory distress. Breath sounds normal. Mild diffuse tenderness of anterior chest wall on palpation. Abdomen: Soft and nontender. +BS x4 Back: normal inspection, soft tissue tenderness of the paraspinous muscles of the thoracic and lumbar areas. midline tenderness of the upper lumbar spine. Skin: Skin warm and dry. Normal skin color. Normal skin turgor. No rashes. Extremities: No lower extremity edema. No joint swelling. Neuro/psych: Oriented X 3. No motor deficit. No sensory deficit. CN II-XII intact. Normal speech and cognition. Steady gait Medical Decision Making Medical Decision Making MDM Narrative: 39 yo male presenting with back pain and chest pain s/p fall on ice today. no head strike or LOC. he appears well. exam w/ mostly soft tissue tenderness. XR done thoracic and lumbar spine - low suspicion for internal injury, most likely MSK pain. he also reports some mild, intermittent, nonradiating chest pains. low suspicion for cardiac etiology, ACS, or PE. patient waiting several hours in the ER waiting room. he is asking to leave. he was brought back into triage room for re-evaluation. results were reviewed XR unremarkable. CXR unremarkable. EKG without ischemic changes. comfortable with discharge home with supportive care, nsaids and tylenol PRN, rest/ice/heat. patient agrees w plan Differential Diagnosis Differential Diagnoses: The differential diagnosis associated with the presentation includes Inflammatory disorders, malignancy, trauma, osteoporosis, nerve root compression, radiculopathy, plexopathy, degenerative disc disease, disc hernia tion, spinal stenosis, sacroiliac joint dysfunction, facet joint injury, and less likely infection?like abscess or diskitis Independent Interpretation I performed an independent interpretation of an: EKG and Plain X-Ray Interpretation: ekg w/ normal sinus rhythm, hr 77 bpm, normal pr interval, normal qtc xr thoracic and lumbar spines without appreciated fx Radiology Impression Discussion of test interpretation with radiology: I have reviewed the radiologist's reading. External Record Review External record reviewed: Outpatient record and Prior outpatient labs Prescription Management I considered prescription management with: Pain Medication Chronic Conditions Patient?s care impacted by: Other (substance use disorder) Critical Care Time Critical Care Time Critical Care Time: No Discharge Plan Discharge Clinical Impression: Back pain Patient Disposition: Home, Self-Care Instructions: Back Pain (ED) Additional Instructions: Your x-rays today were normal. Your pain is most likely due to muscle strain and spasm. Limit bending, lifting or twisting. Rest. Use ice several times per day for 20 minutes at a time for the next 48 hours and then change to heat. Take medications as prescribed to help with pain and discomfort. Follow up with your Primary Care Doctor this week. If you develop new or worsening symptoms call 911 or come back to the ER for further evaluation. Prescriptions: New cyclobenzaprine 10 mg tablet 10 mg PO TID PRN (Reason: muscle spasm) Qty: 10 0RF lidocaine 5 % adhesive patch,medicated 1 patch topical DAILY Qty: 15 0RF Rx Instructions: leave on most painful area for up to 12 hrs naproxen 500 mg tablet 500 mg PO BID PRN (Reason: pain) Qty: 20 0RF No Action buprenorphine-naloxone [Suboxone] 8-2 mg film 1 strip sublingual BID Stand Alone Forms: Work/School Release Interventions: ED Discharge Assessment Last Done: 11/23/24 19:42 Discharge Date/Time: 11/23/24 19:44 Print Language: Guatemalan
[2024-11-23 16:01] VITALS: BP 114/71; PULSE 86; RESP 16; TEMP 36.3; O2SAT 97; BMI 23.2
--- NOTE | 2024-11-23 16:02 | ECG_ITS ---
Test Reason : chest pain Blood Pressure : */* mmHG Vent. Rate : 77 BPM Atrial Rate : 77 BPM P-R Int : 136 ms QRS Dur : 76 ms QT Int : 354 ms P-R-T Axes : 71 27 64 degrees QTcB Int : 400 ms Normal sinus rhythm Normal ECG When compared with ECG of 20-Jul-2019 05:12, MS interval has increased Referred By: Margie Tobias Electronically Signed By: GRIFFIN EATON MD
--- NOTE | 2024-11-23 16:12 | MHC.EDTECH ---
Delay in EKG for cc of chest pain due to pt being taken to radiology
--- NOTE | 2024-11-23 19:38 | PC.NURSE ---
Pt reeval by RME in triage cleared for dc home. Denies pain at this time. VSS.
[2024-11-23 19:42] VITALS: BP 114/71; PULSE 86; RESP 16; TEMP 36.3; O2SAT 97
== END 2024-11-23 19:44 | disposition home or self-care (01) ==
PROVIDERS: Emergency Provider Emergency Medicine Emergency Medical Services
DX: Z04.2 Encounter for examination and observation following work accident (principal); M54.9 Dorsalgia, unspecified; R07.9 Chest pain, unspecified; Z91.81 History of falling; F11.20 Opioid dependence, uncomplicated
CPT/HCPCS: 71046; 72072; 72100; 93005; 99282; 99283

== ENCOUNTER → 2024-11-23 16:00 | Outpatient (BNV) | payer MEDICAID, SELFPAY | PROVIDERS: Visit Provider Radiology Diagnostic Radiology | DX: R52 Pain, unspecified (principal); R07.9 Chest pain, unspecified; W00.9XXA Unspecified fall due to ice and snow, initial encounter | CPT/HCPCS: 71046; 72072; 72100 ==

== ENCOUNTER → 2024-11-23 16:02 | Outpatient (BNV) | payer OTHER, MEDICAID, SELFPAY | PROVIDERS: Emergency Provider Emergency Medicine Emergency Medical Services; Visit Provider Internal Medicine Cardiovascular Disease | DX: R07.9 Chest pain, unspecified (principal) | CPT/HCPCS: 93010 ==

== ENCOUNTER 2025-05-22 23:17 | Emergency (ER) | payer MEDICAID, SELFPAY ==
[2025-05-22 23:19] VITALS: BP 113/85; PULSE 72; RESP 18; TEMP 36.7; O2SAT 97; BMI 21.9
--- NOTE | 2025-05-22 23:35 | ED.GENADULT ---
HPI - General Adult General Chief complaint: Extremity Problem Stated complaint: left leg pain Time Seen by Provider: 05/22/25 23:35 History of Present Illness ED Provider: Ash SANTIAGO narrative: The patient is a 39-year-old male who presented to the emergency room asking for ibuprofen because of pain that he says is at his left ankle. He wears a correctional ankle brace/monitor on the left ankle and he blames this device for causing pain and swelling to the ankle in the foot. He notes bruises to the ankle area. He also notes that there is what he thinks is a bug bite on the dorsum of the left foot. He denies any other complaints. He is requesting ibuprofen. The patient was loud and agitated and expressed a lot of grandiose thoughts in the emergency department. He was belligerent with staff but he denies any actual plans to hurt himself or anyone else. Related Data Home Medications ?Medication ?Instructions ?Recorded ?Confirmed buprenorphine 8 mg-naloxone 2 mg 1 strip sublingual BID 02/14/22 02/14/22 sublingual film (Suboxone) Previous Rx's ?Medication ?Instructions ?Recorded cyclobenzaprine 10 mg tablet 10 mg PO TID PRN muscle spasm #10 11/23/24 tabs lidocaine 5 % topical patch 1 patch topical DAILY #15 ea 11/23/24 naproxen 500 mg tablet 500 mg PO BID PRN pain #20 tabs 11/23/24 Allergies Allergy/AdvReac Type Severity Reaction Status Date / Time No Known Allergies (No Known Allergy Verified 05/22/25 23:23 Allergies*) Review of Systems Review of Systems: Yes all other systems are reviewed and are negative [facility] Past Medical History Medical History Healthy adult Polysubstance dependence Social History Social History Smoked in Last 30 Days: No Use of substances other than those prescribed or required for medical reasons: No Advance Directives: No Advance Directives Information Provided: No Physical Exam ED Vital Signs: Vital Signs - 24 hr 05/22/25 23:19 Temperature 98.1 F Pulse Rate 72 Respiratory Rate 18 Blood Pressure 113/85 Pulse Oximetry 97 Oxygen Delivery Method Room Air BMI result Body Mass Index 21.9 Const Other: The patient is a slim, fit looking 39-year-old who was awake and alert in very grandiose in his expressions. He did not seem in acute distress. HENMT Other: The face is symmetrical. ?Mucous membranes moist. Eyes Other: Pupils are round equal, conjunctivae are clear, extraocular movements intact Neck Neck: Yes normal visual inspection, Yes full ROM and Yes no lymphadenopathy Resp Effort & Inspection: normal respiratory effort Auscultation: clear to auscultation bilaterally Cardio Rate: regular rate Rhythm: regular rhythm Heart sounds: S1 normal heart sound present and S2 normal heart sound present GI Other: Abdomen is soft and nontender Skin Other: There is some slight bruising to the skin around the left ankle. Neuro Other: The patient is awake and alert. He has a grandiose and somewhat bizarre manner but is not delirious. Cranial nerves are grossly intact. He moves his extremities normally and appropriately. He walks with a normal gait. He seems neurologically intact. Extrem Other: The patient has good pulses in both feet. He has a mild bruising to the skin around the left ankle. He has a correctional ankle bracelet around the left ankle. There was no soft tissue swelling. He seems to walk without discomfort. Medical Decision Making Medical Decision Making MDM Narrative: The patient is a 39-year-old male with a correctional ankle bracelet on his left ankle. He is complaining of pain at the ankle. He has some slight bruising to the skin around the ankle but no soft tissue swelling or other sign of concerning finding. There was no calf swelling or tenderness. Nothing to suggest a DVT. The foot is well-perfused. I do not think the patient has any acutely dangerous process with regard to his ankle. He requested ibuprofen. The patient was extremely grandiose and verbally aggressive with staff to the point where the police were called. The patient was ultimately walked out of the emergency room by police and was stress passed from the hospital. The patient was advised to follow up with the [facility] to discuss any concerns he has a about the ankle bracelet. Discharge Plan Discharge Clinical Impression: Contusion of ankle, left Patient Disposition: Home, Self-Care Additional Instructions: Please follow-up with [facility] tomorrow to discuss your ankle bracelet. Return to the emergency room if worse. Prescriptions: No Action buprenorphine-naloxone [Suboxone] 8-2 mg film 1 strip sublingual BID cyclobenzaprine 10 mg tablet 10 mg PO TID PRN (Reason: muscle spasm) Qty: 10 0RF lidocaine 5 % adhesive patch,medicated 1 patch topical DAILY Qty: 15 0RF Rx Instructions: leave on most painful area for up to 12 hrs naproxen 500 mg tablet 500 mg PO BID PRN (Reason: pain) Qty: 20 0RF Print Language: Grenadian
--- NOTE | 2025-05-23 07:20 | PC.NURSE ---
LATE ENTRY for 0000 Pt arrived to the ED at 2317, was noted to be loud, hyperverbal and manic during triage. The pt was returned to the waiting room while he awaited room assignment and could be seen pacing back forth, yelling and being argumentative with registration, appearing paranoid. This RN to the WR to bring him back to 22H at which point he could be heard cursing at registration, while walking back to the bed he was noted to yell and curse at an [employer] house worker as he passed by because he thought there were looking at me crazy . While walking to ED22h, the patient could be noted to say things like I am god and I can see the bigger picture ya know, I see the bigger picture , I'm going to get three grenades and blow you all up . Once to 22h he was loud, frequently getting up out of bed pacing around and being confrontational with staff. He was alert, conversing freely in full/complete sentences and was without any acute distress noted. The pt was verbally abusive and threatening to staff, demanding that staff give him his meds so he can leave. furnace repairer helper shared her concerns with MD about his presentation and whether or not this is or should be a pysch related issue/incident. [employer] called as the pt continued to escalate, squaring up with MD and security. Upon [employer] arrival the pt continued to be hyperverbal and argumentative. [employer] escorted the pt out of the ED and he was trespassed for his behaviors. After the pt's departure/removal from the department it was brought to this consumer loan underwriter's attention that he had been seen taking a photo of our front registration staff as well as staff in the main department. [id number] furnace repairer helper spoke with officer ebonie who intially presented when PD was first called on the patient. The officer was here with another patient and this RN made the officer aware that it was later brought to my attention that the patient had taken pictures of many staff members during his stay here, including front registration. PD made this RN aware that unfortunately because it is a public area there is nothing that can be done because it was not a Private area.
[2025-05-23 07:23] VITALS: BP 113/85; PULSE 72; RESP 18; TEMP 36.7; O2SAT 97
== END 2025-05-23 00:05 | disposition home or self-care (01) ==
PROVIDERS: Emergency Provider Emergency Medicine
DX: S90.02XA Contusion of left ankle, initial encounter (principal); X58.XXXA Exposure to other specified factors, initial encounter; Y93.9 Activity, unspecified; Y92.9 Unspecified place or not applicable; Y99.8 Other external cause status; Z79.899 Other long term (current) drug therapy
CPT/HCPCS: 99283; 99284

== ENCOUNTER 2025-05-24 00:15 | Inpatient (IN) | payer OTHER, SELFPAY ==
[2025-05-24] VITALS (9 sets, daily range): BP systolic 91–112; BP diastolic 53–66; PULSE 76–106; RESP 16–20; TEMP 36.2; O2SAT 97–99; BMI 24.3
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
[2025-05-24] MEDS: diazePAM 10 MG/2 ML CARTRIDGE IM (00:45)
[2025-05-24 01:21] LABS: MANUAL DIFF FLAG NO
[2025-05-24 01:22] LABS: Hematocrit 35.3 % (42.0-52.0); Hemoglobin 12.9 g/dl (14.0-18.0); Imm Gran Abs Auto 0.02 X10*3/uL (0.00-0.03); Imm Gran Pct Auto 0.2 % (0.0-0.4); Lymphocytes Absolute Auto 2.1 X10*3/uL (1.2-4.9); Mean Corpuscular HGB Conc 36.5 g/dl (31.0-36.0); Mean Corpuscular Hemoglobin 31.5 pg (27.0-33.0); Mean Corpuscular Volume 86.1 fL (80.0-98.0); NRBC Abs Auto 0.000 X10*3/uL (0.0-0.012); NRBC Pct Auto 0.0 /100WBC (0.0-0.2); Platelet Count 296 X10*3/uL (160-400); Red Blood Count 4.10 X10*6/uL (4.60-5.80); White Blood Count 8.8 X10*3/uL (4.8-10.8)
[2025-05-24 01:38] LABS: Alanine Aminotransferase 33 U/L (0-40); Albumin Level 4.9 g/dL (3.5-5.0); Alkaline Phosphatase 45 U/L (39-117); Anion Gap 16 (12-20); Aspartate Amino Transferase 76 U/L (5-37); Blood Urea Nitrogen 20 mg/dL (9-16); Calcium 8.9 mg/dL (8.4-10.2); Carbon Dioxide 22 mmol/L (22-29); Chloride 105 mmol/L (96-108); Creatinine Clr Calc Pharmacy 106.3; Estimated Glomerular Filt Rate > 60; Potassium 3.1 mmol/L (3.3-5.1); Sodium 140 mmol/L (135-145); Total Protein 6.8 g/dL (6.5-8.0)
--- NOTE | 2025-05-24 01:49 | PC.NURSE ---
pt arrived with hpd and security, pt combative, aggressive, making HI statement to staff, pt having delusions, hearing voices. pt had to be medically and physically retrained. Vitals taken, labs drawn. pt currently is sleeping.
--- NOTE | 2025-05-24 01:52 | PC.NURSE ---
refer to physical restraint paper work.
--- NOTE | 2025-05-24 02:39 | PC.NURSE ---
pt is sleeping
--- NOTE | 2025-05-24 05:03 | PC.NURSE ---
pt crying out for a warm blanket, blankets provided.
[2025-05-24] MEDS: Potassium Chloride Packet 20 MEQ PACKET 40 MEQ PO (10:18)
--- NOTE | 2025-05-24 10:42 | PC.NURSE ---
pt woke up and immediately started shouting and calling for a doctor. Dr. Prescott notified and came to assess pt. Ann from CARE team also met with pt. When told that pt would not be leaving the ED today as it is unsafe to do so, pt became very agitated. Pt offered PO meds which he initially refused and IM medications were ordered. Pt stood on top of furniture, beat chest, yelled and threatened staff. He stated that anyone who tried to medicate him would . Pt continued to be agitated and aggressive. Multiple staff required to standby for safety. Pt stated he would like to take PO medications. He took medications as charted in JAN. Took PO Potassium as ordered from previous shift. Pt is angry and upset but following directions at this time. EKG, UA, IRIZARRY pending
--- NOTE | 2025-05-24 11:03 | PC.NURSE ---
pt states Suboxone is the only medication that he takes. Med Rec entered with pt info and pharmacy claims
--- NOTE | 2025-05-24 11:09 | PC.NURSE ---
pt requested his suboxone. Order placed. Pt given suboxone with 30 minutes of order. initially stated he did not want it anymore but then pt decided to take it.
--- NOTE | 2025-05-24 14:53 | PC.NURSE ---
pt very angry and demanding. he lashes out verbally at staff when he does not get what he wants. he is mostly redirectable and additional medications have not been needed. Pt has refused an EKG multiple times. will attempt again. efforts being made not to escalate patient.
--- NOTE | 2025-05-24 15:05 | PC.NURSE ---
pt provided urine sample. he continues to refuse EKG.
[2025-05-24 15:28] LABS: Appearance Urine Clear; Glucose Urine UA Negative (Negative); PH 6.0 (5.0-9.0); Specific Gravity - Urine >= 1.030 (1.005-1.025); UMIC TRIGGER UACC YES
[2025-05-24 15:37] LABS: Cannabinoid Screen Urine POSITIVE (Not Detect)
--- NOTE | 2025-05-24 16:17 | PHA.MEDREC ---
Pharmacy Consult ? Medication Reconciliation Pharmacy has completed the medication reconciliation. Spoke with pt nurse and pt unable to talk to at this time; nurse states pt confirmed he is taking Suboxone but wasn't able to confirm how he is taking it at this time or when he last took it.
--- NOTE | 2025-05-25 07:12 | PC.NURSE ---
Assumed care of patient at 0645, patient is restless and agitated this am, pacing around BH pod, demanding discharge, telling staff I don't give a fuck, yall need to let me outta here . this RN educated patient on process of admission and requirements for discharge, pt continually interrupted this RN during said conversation stating I don't care, Mary fuck shit up when I get upstairs, I don't give a fuck, yall can't keep me hostage here . This RN educated pt that it would be advisable to remain calm and cooperative throughout the admission process to which pt responded, Nah, I ain't fucking doing that shit . Pt continues to pace around BH pod, raising his voice, threatening to leave. Perseverating on being held here against his will. Pt currently upsetting other patients. Pt asked to return to his room, pt declined
--- NOTE | 2025-05-25 08:34 | PC.NURSE ---
Pt moved to room, able to be verbally redirect, calm and cooperative at this time
[2025-05-25 08:37] VITALS: PULSE 70; RESP 16; TEMP 36.6; O2SAT 100
--- NOTE | 2025-05-25 08:45 | PC.NURSE ---
pt politely refusing Zyprexa
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
[2025-05-25 16:00] VITALS: BP 145/79; PULSE 96; RESP 14; TEMP 37.2; O2SAT 96
[2025-05-25 16:55] VITALS: BMI 20.3
--- NOTE | 2025-05-25 17:09 | PC.NURSE ---
Barrett is a 39? yo male who? is admitted from ED with an admitting diagnosis of HI.? No PMH noted.? He refused to sign a CV and is admitted on a 12b.? He presents as delusional and paranoid.? Guarded and irrational during conversation.? Pt stated he does not know why he is here.? He reports that his mother ?is trying to kill him? and that he is ?being sacrificed?..? He denies SI/HI/AVH. ? He is currently unhoused and feels he cannot go back to living with his mother.? He states he has had recent weight loss but he was unable to state how much..? He is a one pack per day cigarette smoker.? He has a history of polysubstance abuse but denies current use. He is currently on probation and has an ankle bracelet in place.? ER reports that his commissioned fire officer is aware he is here. He signed CARMEN?s for [facility] and his commissioned fire officer. Skin and safety check completed.? He was oriented to unit and instructed on telephone usage and visitor policy.?
--- NOTE | 2025-05-25 17:13 | PC.ADMIT ---
Barrett is a 39? yo male who? is admitted from ED with an admitting diagnosis of HI.? No PMH noted.? He refused to sign a CV and is admitted on a 12b.? He presents as delusional and paranoid.? Guarded and irrational during conversation.? Pt stated he does not know why he is here.? He reports that his mother ?is trying to kill him? and that he is ?being sacrificed?..? He denies SI/HI/AVH. ? He is currently unhoused and feels he cannot go back to living with his mother.? He states he has had recent weight loss but he was unable to state how much..? He is a one pack per day cigarette smoker.? He has a history of polysubstance abuse but denies current use. He is currently on probation and has an ankle bracelet in place.? ER reports that his postal sorting officer is aware he is here. He signed CARMEN?s for [facility] and his postal sorting officer. Skin and safety check completed.? He was oriented to unit and instructed on telephone usage and visitor policy.?
[2025-05-25 20:00] VITALS: BP 125/79; PULSE 81; RESP 16; TEMP 36.6; O2SAT 100
[2025-05-26 08:00] VITALS: RESP 18
--- NOTE | 2025-05-26 13:58 | HO.PSYCHPN ---
Subjective Subjective Date of Service: 05/26/25 Reason For Visit: psychosis Interim History: wandering pacing intrusive demanding. asking for discharge. informed he would be held through friday. he stated he was in touch with MD jeny encouraged him to continue so. per staff, asking for nystatin for feet. refused morning zyprexa but took meds last night. did not sleep at all last night. Mental Status Exam Mental Status Exam Narrative: own attire, tattoos over arms and chest. PMA of pacing. cooperative. speech incr rate, amount, loudness. decr latency. nml tone. thoughts focused on discharge and needing to work. affect hyper-intense, min-labile, irritable. mood not assessed. no SI/SIBI/HI/AVH expressed. Diagnostics Vital Signs (24Hr): Vital Signs - 24 hr 05/25/25 16:00 05/25/25 20:00 05/26/25 08:00 Temperature 98.9 F 97.8 F Pulse Rate 96 81 Respiratory Rate 14 16 18 Blood Pressure 145/79 H 125/79 Pulse Oximetry 96 100 Oxygen Delivery Method Room Air Room Air BMI result Body Mass Index 20.3 Labs 05/24/25 01:17 05/24/25 01:17 Labs: Laboratory Results - last 48 hr 05/24/25 15:19 Urine Color Dark Yellow Urine Appearance Clear Urine pH 6.0 Ur Specific [place] >= 1.030 H Urine Protein 30 (1+) H Urine Glucose (UA) Negative Urine Ketones 40 Urine Blood Negative Urine Nitrite Negative Ur Leukocyte Esterase Trace H Urine RBC 0-2 Urine WBC 0-5 Ur Squamous Epith Cells 0-2 Urine Bacteria None Seen Hyaline Casts 0-2 Urine Opiates Screen Not Detected Ur Buprenorphine Scrn Positive H Ur Oxycodone Screen Not Detected Urine Methadone Screen Not Detected Urine Fentanyl Screen Not Detected Ur Barbiturates Screen Not Detected Ur Phencyclidine Scrn Not Detected Ur Amphetamines Screen Not Detected U Benzodiazepines Scrn POSITIVE H Urine Cocaine Screen Not Detected U Marijuana (THC) Screen POSITIVE H Medications Medications Current Medications Acetaminophen (Acetaminophen 325 Mg Tablet) 650 mg PO Q6H PRN PRN Reason: Headache/Pain, Scale 1-10 Al Hydroxide/Mg Hydroxide (Magnesium Hydrox/Alum Hydrox 30 Ml Oral.Susp) 30 ml PO Q6H PRN PRN Reason: Heartburn/Nausea Buprenorphine/Naloxone (Buprenorphine/Naloxone 8/2 Mg Film) 1 film SUBLINGUAL DAILY FABI Last Admin: 05/26/25 08:29 Dose: 1 film Divalproex Sodium (Divalproex Sodium Er 250 Mg Tab.Er.24h) 1,250 mg PO BEDTIME FABI Hydroxyzine HCl (Hydroxyzine Hcl 25 Mg Tablet) 25 mg PO Q6H PRN PRN Reason: mild anxiety Lorazepam (Lorazepam 1 Mg Tablet) 2 mg PO Q4H PRN PRN Reason: agitation Magnesium Hydroxide (Milk Of Magnesia 30 Ml Oral.Susp) 30 ml PO DAILY PRN PRN Reason: Constipation Nicotine Polacrilex (Nicotine Polacrilex 2 Mg Gum) 4 mg BUCCAL Q2H PRN PRN Reason: Nicotine Cravings Last Admin: 05/26/25 13:13 Dose: 4 mg Nystatin (Nystatin Powder 15 Gm Bottle) 1 appl TOPICAL BID FABI; Protocol Last Admin: 05/26/25 13:14 Dose: 1 appl Olanzapine (Olanzapine 5 Mg Tablet) 5 mg PO Q4H PRN PRN Reason: agitation Olanzapine (Olanzapine 10 Mg Tablet) 20 mg PO BEDTIME FABI Trazodone HCl (Trazodone Hcl 50 Mg Tablet) 50 mg PO BEDTIME MRX1 PRN PRN Reason: Insomnia Allergies Allergies Allergy/AdvReac Type Severity Reaction Status Date / Time No Known Allergies (No Known Allergy Verified 05/24/25 01:36 Allergies*) Assessment & Plan Assessment & Plan (1) Psychosis: Status: Acute Code(s): F29 - Unspecified psychosis not due to a substance or known physiological condition Plan unclear etiology. denies substance use other than suboxone and cannabis recently. 05/25: offer anti-psychotics and mood stabilizers. 12b. observe through friday. 05/26: no sleep overnight. consistent with meg. took meds last night but not this morning. DC morning meds and increase HS regimen from zyprexa 10 --> 20 QHS and VPA 1000 --> 1250 QHS. 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 Reason for continued inpatient stay Substantial Risk for: harm to others and inability to function Time Spent With Patient Time: Total time managing care of this patient today __25__ minutes.
[2025-05-26 20:00] VITALS: BP 129/77; PULSE 76; RESP 16; TEMP 36.6; O2SAT 99
[2025-05-27 07:58] VITALS: BP 132/76; PULSE 76; RESP 18; TEMP 36.3; O2SAT 100
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
[2025-05-27 20:00] VITALS: BP 133/77; PULSE 92; RESP 18; TEMP 36.9; O2SAT 96
--- NOTE | 2025-05-28 02:11 | PC.NURSE ---
Barrett was offered Ativan PO prn because he was slightly agitated. Patient stated the 2mg made him feel too sedated and requested to just take 1 mg to help. Patient give 1mg Ativan PO prn.
[2025-05-28 07:30] VITALS: BP 127/73; PULSE 75; RESP 20; TEMP 36.4; O2SAT 98
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
[2025-05-28 20:00] VITALS: BP 118/64; PULSE 70; RESP 16; TEMP 37.1; O2SAT 99
[2025-05-28] MEDS: Nicotine Polacrilex Lozenge 2 MG LOZENGE BUCCAL (20:53)
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
[2025-05-29 08:37] VITALS: BP 117/77; PULSE 80; RESP 20; TEMP 36.4; O2SAT 98
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
[2025-05-29 19:39] VITALS: BP 132/80; PULSE 99; RESP 19; TEMP 527.2; TEMP 981; O2SAT 98
[2025-05-30 08:00] VITALS: BP 132/83; PULSE 103; RESP 18; TEMP 36.3; O2SAT 98
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
[2025-05-30] MEDS: Naloxone HCl Nasal TAKE HOME 4 MG SPRAY 8 MG NOSTRILALT (11:03)
--- NOTE | 2025-05-30 11:06 | PC.NURSE ---
Pt declined labs this morning. Pt also declined CT scan today as well.
== END 2025-05-30 11:46 | disposition home or self-care (01) | DRG 751 ==
LOC: HO.ED 01:45 → HO.PADLT16 05-25 13:29 → HO.PM5 05-29 13:40
PROVIDERS: Admitting Provider Psychiatry & Neurology Psychiatry; Emergency Provider Emergency Medicine; Visit Provider Nurse Practitioner Psychiatric/Mental Health
DX: F29 Unspecified psychosis not due to a substance or known physiological condition (principal); E87.6 Hypokalemia; F17.210 Nicotine dependence, cigarettes, uncomplicated; F19.20 Other psychoactive substance dependence, uncomplicated; Z71.6 Tobacco abuse counseling; Z78.1 Physical restraint status; Z91.51 Personal history of suicidal behavior
CPT/HCPCS: 36415; 80048; 80076; 80307; 81001; 85025; 99285; J1200; J1630; J3360; J3486; S9485

== ENCOUNTER → 2025-05-25 13:16 | Outpatient (BNV) | payer OTHER, SELFPAY | PROVIDERS: Admitting Provider Psychiatry & Neurology Psychiatry; Emergency Provider Emergency Medicine; Visit Provider Psychiatry & Neurology Psychiatry | DX: F29 Unspecified psychosis not due to a substance or known physiological condition (principal) | CPT/HCPCS: 99231; 99232; 99233 ==